=== PATIENT | female | born 1955 | race Asian ===

== ENCOUNTER 2020-10-11 13:36 | Emergency (ER) | payer OTHER ==
[~2020-10-11] VITALS: Ht 162.6 cm; Wt 74.8 kg
[2020-10-11] MEDS ORDERED: IOHEXOL 300 MG/ML 100ML BOTTLE IJ ONE (19:20)
[2020-10-11 19:27] LABS: Albumin 3.9 g/dL (3.4-5.0); Calcium 9.1 mg/dL (8.5-10.1); Potassium 3.9 mmol/L (3.5-5.1)
[2020-10-11 19:30] LABS: BUN/Creatinine Ratio 25.3; Bilirubin, Total 0.7 mg/dL (0.2-1.0); Total Protein 7.8 g/dL (6.4-8.2)
[2020-10-11 20:12] LABS: INR 0.97 (0.9-1.15)
[2020-10-11] MEDS ORDERED: ETOMIDATE (2MG/ML) 20ML VIAL IV ONE (21:00)
[2020-10-11 21:17] LABS: Basophils # (auto) 0 10 ^3/uL (0-0.2); Basophils % (auto) 0.1 % (0.0-2.0); Eosinophils # (auto) 0 10 ^3/uL (0-0.8); Hematocrit 39.6 % (36.0-46.0); Hemoglobin 13.2 g/dL (12.2-16.2); Lymphocytes # (auto) 0.5 10 ^3/uL (0.4-5.4); Lymphocytes % (auto) 4.1 % (10.0-50.0); Mean Corpuscular Hemoglobin 30.2 pg (28.0-32.0); Mean Corpuscular Hgb Conc. 33.3 g/dL (32.0-36.0); Mean Corpuscular Volume 90.6 fL (80.0-100.0); Monocytes # (auto) 0.5 10 ^3/uL (0-1.3); Monocytes % (auto) 4.8 % (0.0-12.0); Neutrophils # (auto) 10.2 10 ^3/uL (1.6-8.6); Nucleated Red Blood Cells % 0.1 %; Red Blood Cells 4.37 10^6/uL (4.0-5.20); Red Cell Distribution Width 13.1 % (11.8-14.3); White Blood Cell 11.2 10^3/uL (4.4-10.8)
[2020-10-11 21:58] VITALS: BP 165/80
[2020-10-11] MEDS ORDERED: MORPHINE SULFATE 4 MG/ML SYR/VIAL IV ONE (22:00)
[2020-10-11] MEDS ORDERED: ONDANSETRON HCL 4 MG/2 ML VIAL IV ONE (22:00)
== END 2020-10-11 23:25 | disposition still patient (30) ==
LOC: EDBD 13:36 → EDSEX 13:36 → ER 13:36
DX: S43.014A Anterior dislocation of right humerus, initial encounter (principal); S30.1XXA Contusion of abdominal wall, initial encounter; I10 Essential (primary) hypertension; M54.2 Cervicalgia; R07.89 Other chest pain; V89.2XXA Person injured in unspecified motor-vehicle accident, traffic, initial encounter; Y93.I9 Activity, other involving external motion; Y92.481 Parking lot as the place of occurrence of the external cause; Y99.8 Other external cause status
CPT/HCPCS: 23650; 36415; 70450; 71101; 71260; 72125; 73020; 73060; 74177; 80053; 85025; 85610; 96374; 96375; 99152; 99285; J2270; J2405; Q9967